=== PATIENT | male | born 1970 | race Caucasian/White ===

== ENCOUNTER → 2016-11-13 | Outpatient (CLI) | payer BC ==
[2016-11-13 12:23] LABS: BASO % 0.5 %; BASO ABS # 0.04 K/uL (0-0.2); COMPLETE YES; EOS % 1.7 %; HEMATOCRIT 51.9 % (42-52); IG% 0.6 %; LYMPH % 15.4 %; LYMPH ABS # 1.24 K/uL (1.2-3.4); MEAN CELL VOLUME 97.2 fL (80-100); MEAN CORPUSCULAR HEMOGLOBIN 33.7 pg (25-34); MEAN CORPUSCULAR HGB CONC 34.7 g/dl (32-36); MEAN PLATELET VOLUME 10.8 fL (7.4-10.4); NEUT % 71.8 %; PLATELET COUNT 189 K/uL (130-400); RED BLOOD COUNT 5.34 M/uL (4.7-6.1); WHITE BLOOD COUNT 8.04 K/uL (4.8-10.8)
[2016-11-13 12:56] LABS: ALT/SGPT 45 U/L (12-78); BLOOD UREA NITROGEN 13 mg/dl (7-18); BUN/CREATININE RATIO 14.2 (10-20); CALCIUM 9.4 mg/dl (8.5-10.1); CARBON DIOXIDE 27 mmol/L (21-32); CHLORIDE 104 mmol/L (98-107); CHOLESTEROL 266 mg/dl (0-200); CREATININE 0.93 mg/dl (0.60-1.40); GLUCOSE 108 mg/dl (70-99); SODIUM 137 mmol/L (136-145); TRIGLYCERIDES 328 mg/dl (0-150); VERY LOW DENSITY LIPOPROT CALC 66 mg/dl
[2016-11-13 13:06] LABS: ALB/GLOB RATIO 1.1 (0.9-2); ALKALINE PHOSPHATASE 103 U/L (45-117); AST/SGOT 28 U/L (15-37); CHOLESTEROL/HDL RATIO 3.9; HDL CHOLESTEROL 68 mg/dl; LDL CHOLESTEROL CALCULATED 132 mg/dl
== END | disposition home or self-care (01) ==
LOC: C.LABPVFM 09:54
PROVIDERS: ATTEND Family Medicine Adult Medicine
DX: I10 Essential (primary) hypertension (principal)

== ENCOUNTER 2017-02-12 22:38 | Emergency (ER) | payer BC ==
[~2017-02-12] VITALS: Ht 175.3 cm; Wt 84.0 kg
[~2017-02-12 22:38] MED LIST: AMOX250C3 PO
[2017-02-12 22:41] VITALS: TEMP 36.4; Ht 175.3 cm; Wt 84.0 kg
[2017-02-12] MEDS ORDERED: CEFAZOLIN IV 2,000 MG in DEXTROSE 5% 50ML 50 ML IV STA (22:53)
[2017-02-12] MEDS ORDERED: XYLOCAINE 1%/SOD BICARB 20 ML VIAL INFIL ONE (22:53)
[2017-02-12 23:13] LABS: BASO % 0.5 %; BASO ABS # 0.04 K/uL (0-0.2); EOS % 2.1 %; EOS ABS # 0.16 K/uL (0-0.5); HEMATOCRIT 49.1 % (42-52); HEMOGLOBIN 17.6 g/dL (14.0-18.0); IG# 0.03 K/uL (0.00-0.02); LYMPH % 31.1 %; LYMPH ABS # 2.33 K/uL (1.2-3.4); MEAN CELL VOLUME 99.2 fL (80-100); MEAN CORPUSCULAR HEMOGLOBIN 35.6 pg (25-34); MEAN CORPUSCULAR HGB CONC 35.8 g/dl (32-36); MEAN PLATELET VOLUME 10.1 fL (7.4-10.4); MONO % 10.9 %; MONO ABS # 0.82 K/uL (0.11-0.59); NEUT ABS # 4.11 K/uL (1.4-6.5); PLATELET COUNT 197 K/uL (130-400); RED CELL DISTRIBUTION WIDTH SD 50.3 fL (36.4-46.3); WHITE BLOOD COUNT 7.49 K/uL (4.8-10.8)
[2017-02-12 23:32] LABS: ALBUMIN 3.8 gm/dl (3.4-5.0); ALT/SGPT 39 U/L (12-78); AST/SGOT 22 U/L (15-37); BLOOD UREA NITROGEN 11 mg/dl (7-18); CALCIUM 8.9 mg/dl (8.5-10.1); CARBON DIOXIDE 24 mmol/L (21-32); CREATININE 0.91 mg/dl (0.60-1.40); GLUCOSE 96 mg/dl (70-99); POTASSIUM 3.5 mmol/L (3.5-5.1); SODIUM 139 mmol/L (136-145)
[2017-02-12 23:35] LABS: ALKALINE PHOSPHATASE 84 U/L (45-117); TOTAL PROTEIN 7.7 gm/dl (6.4-8.2)
[2017-02-13 00:25] VITALS: BP 156/103; PULSE 78; O2SAT 98
[2017-02-13] MEDS ORDERED: CEPH500C PO (00:25)
[2017-02-13] MEDS ORDERED: HYDR-5688 PO (00:25)
[2017-02-13] MEDS ORDERED: CEPHALEXIN 500MG HOME PACK 1 EA BTL PO ONE (00:30)
[2017-02-13] MEDS ORDERED: NORCO 5/325MG HOME PACK PO ONE (00:45)
--- NOTE | 2017-02-13 00:56 | EMERGENCY ROOM VISIT NOTE ---
History Report prepared by Kostas: Thalia Chun Under the Supervision of: Dr. Sandy Hua M.D. First contact with patient: 22:49 Chief Complaint: LACERATION/CUT (SUT/DERMABOND) Stated Complaint: CUT L HAND INDEX FINGER History of Present Illness The patient is a 46 year old male who presents to the Emergency Room with complaints of an episode of laceration to the left index finger which occurred [employer]. The patient was cutting dry wall in a barn on an old table saw. The conditions were not very clean. His left index finger got cut in the table saw. He feels the tip of his finger might have been amputated. He also has some pain in his left middle finger. He denies any other injury. His last tetanus shot was 2 months ago. He did not have an injury at that time. The patient has a history of hypertension. He smokes 1 pack a day. He drinks a bottle of wine on the weekends. He had 2 glasses of wine tonight. 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 Review of Systems See HPI for pertinent positives & negatives. A total of 10 systems reviewed and were otherwise negative. Past Medical & Surgical Medical Problems: (1) Hypertension Family History No pertinent family history stated. Social History Smoking Status: Current Every Day Smoker Alcohol Use: occasionally Marital Status: Housing Status: lives with family Occupation Status: employed Current/Historical Medications Scheduled Amoxicillin (Amoxil), Unknown Dose PO QID Cephalexin Monohydrate (Keflex), 500 MG PO QID Scheduled PRN Hydrocodone/Acetaminophen 5MG/325MG ([place] 5MG/325MG), 1 TABLET PO Q6 PRN for Pain Allergies Coded Allergies: No Known Allergies (Unverified , 02/12/17) Physical Exam Vital Signs Date Time Temp Pulse Resp B/P (MAP) Pulse Ox O2 Delivery O2 Flow Rate FiO2 02/13/17 00:25 78 20 156/103 98 Room Air 02/12/17 23:44 98 22 176/113 96 Room Air 02/12/17 22:41 36.4 132 22 210/117 94 Room Air Physical Exam Vital signs reviewed. Noted to be hypertensive. General: Well-appearing male, intoxicated, in no significant distress. HEENT: No scleral icterus, PERRLA, neck supple. Atraumatic. Cardiovascular: Regular rate and rhythm, no extra sounds. Pulmonary: Clear to auscultation bilaterally, normal work of breathing. Abdomen: Soft, nontender, nondistended, positive bowel sounds. Musculoskeletal: Left index finger is lacerated from the PIP through the distal aspect of the finger with the PIP joint exposed. Nail bed is avulsed and bleeding is controlled. Neurologic: Patient awake alert and oriented x 3 Skin: Warm, dry, no rash Medical Decision & Procedures ER Provider Diagnostic Interpretation: X-ray results as stated below per interpretation by me: Finger X-ray: Comminuted fracture distal to the PIP joint. Soft tissue disruption distal to the PIP of the left index finger. Laboratory Results 02/12/17 22:59 Red Blood Count 4.95, Mean Corpuscular Volume 99.2, Mean Corpuscular Hemoglobin 35.6, Mean Corpuscular Hemoglobin Concent 35.8, Mean Platelet Volume 10.1, Neutrophils (%) (Auto) 55.0, Lymphocytes (%) (Auto) 31.1, Monocytes (%) (Auto) 10.9, Eosinophils (%) (Auto) 2.1, Basophils (%) (Auto) 0.5, Neutrophils # (Auto ) 4.11, Lymphocytes # (Auto) 2.33, Monocytes # (Auto) 0.82, Eosinophils # (Auto ) 0.16, Basophils # (Auto) 0.04 02/12/17 22:59 Test 02/12/17 22:59 02/12/17 23:07 White Blood Count 7.49 K/uL (4.8-10.8) Red Blood Count 4.95 M/uL (4.7-6.1) Hemoglobin 17.6 g/dL (14.0-18.0) Hematocrit 49.1 % (42-52) Mean Corpuscular Volume 99.2 fL (80-100) Mean Corpuscular Hemoglobin 35.6 pg (25-34) Mean Corpuscular Hemoglobin Concent 35.8 g/dl (32-36) Platelet Count 197 K/uL (130-400) Mean Platelet Volume 10.1 fL (7.4-10.4) Neutrophils (%) (Auto) 55.0 % Lymphocytes (%) (Auto) 31.1 % Monocytes (%) (Auto) 10.9 % Eosinophils (%) (Auto) 2.1 % Basophils (%) (Auto) 0.5 % Neutrophils # (Auto) 4.11 K/uL (1.4-6.5) Lymphocytes # (Auto) 2.33 K/uL (1.2-3.4) Monocytes # (Auto) 0.82 K/uL (0.11-0.59) Eosinophils # (Auto) 0.16 K/uL (0-0.5) Basophils # (Auto) 0.04 K/uL (0-0.2) RDW Standard Deviation 50.3 fL (36.4-46.3) RDW Coefficient of Variation 14.0 % (11.5-14.5) Immature Granulocyte % (Auto) 0.4 % Immature Granulocyte # (Auto) 0.03 K/uL (0.00-0.02) Anion Gap 8.0 mmol/L (3-11) Est Creatinine Clear Calc Drug Dose 101.5 ml/min Estimated GFR () 116.7 Estimated GFR (Non- 100.7 BUN/Creatinine Ratio 12.1 (10-20) Calcium Level 8.9 mg/dl (8.5-10.1) Total Bilirubin 0.3 mg/dl (0.2-1) Direct Bilirubin < 0.1 mg/dl (0-0.2) Aspartate Amino Transf (AST/SGOT) 22 U/L (15-37) Alanine Aminotransferase (ALT/SGPT) 39 U/L (12-78) Alkaline Phosphatase 84 U/L (45-117) Total Protein 7.7 gm/dl (6.4-8.2) Albumin 3.8 gm/dl (3.4-5.0) Ethyl Alcohol mg/dL 114.0 mg/dl (0-3) Laboratory results per my review. Medications Administered Medications (Trade) Dose Ordered Sig/Brigette Route Start Time Stop Time Status Last Admin Dose Admin Cefazolin Sodium 2000 mg/Dextrose 60 ml @ 100 mls/hr NOW STAT IV 02/12/17 22:53 02/12/17 23:28 DC 02/12/17 23:43 100 MLS/HR Cephalexin Monohydrate (Keflex 500MG Home Pack) 1 homepack NOW ONCE PO 02/13/17 00:30 02/13/17 00:31 DC 02/13/17 00:41 1 HOMEPACK Acetaminophen/ Hydrocodone Bitart ([place] 5/325mg Home Pack) 1 homepack UD ONCE PO 02/13/17 00:45 02/13/17 00:46 DC 02/13/17 00:42 1 HOMEPACK Procedure Digital Block Indication: open fracture of left distal index finger Verbal consent obtained. Risks and benefits were explained with the usual customary discussion. A time out was taken. The skin was prepped with Betadine. Using sterile technique, 4 mL's of 1% lidocaine was injected into the base of the left index finger. No complications. The patient tolerated the procedure well. ED Course 2250: Past medical records reviewed. The patient was evaluated in room B6. A complete history and physical examination was performed. 2253: Cefazolin Sodium 2000 mg/Dextrose 60 ml @ 100 mls/hr IV. 2258: Digital block was performed according to the procedure note above. 2329: I discussed the patient's case with Dr. German, orthopedic surgery - [facility]. He will evaluate the patient for further management. 2340: Upon reevaluation, the patient is stable. I discussed laboratory and radiographic results with him. He verbalized agreement of the treatment plan. The patient will be evaluated for further management and care. 0021: The patient has been evaluated by Dr. German. He recommends the patient follow up with Dr. Cotton this week. He was discharged home. 0030: Keflex 500 mg 1 homepack PO. 0045: [place] 5/325 mg 1 homepack PO. Medical Decision Differential diagnosis: Etiologies such as fracture, dislocation, neurovascular compromise, compartment syndrome, soft tissue injury, as well as others were entertained. This patient was evaluated and appeared to be in no significant distress. Physical examination reveals significant trauma to the distal left index finger. A digital block was performed for the patient's comfort. Please see my procedure note above. X-rays were performed and reveal a comminuted distal fracture of the middle and distal phalanges. The laceration exposes the joint and multiple comminuted fractured pieces. Patient's tetanus status is up-to- date. He was given 2 g of IV Ancef. I did speak with Dr. German of orthopedic surgery has agreed to evaluate the patient in the emergency department for further management. The patient's wound was irrigated and closed by Dr. German. He has recommended Keflex for [address] German will arrange for the patient to be seen by Dr. Cotton of hand surgery this week. He will be discharged to the care of his and return to the ER for worsening of symptoms or any medical concerns. Medication Reconcilliation Current Medication List: was personally reviewed by me Blood Pressure Screening Patient's blood pressure: Elevated blood pressure Blood pressure disposition: Referred to PCP Consults Time Called: 2326 Consulting Physician: Dr. German, orthopedic surgery - [facility] Returned Call: [phone] I discussed the patient's case with him. He will evaluate the patient for further management. Impression Primary Impression: Open fracture of phalanx of left index finger Additional Impression: Alcohol intoxication Scribe Attestation The scribe's documentation has been prepared under my direction and personally reviewed by me in its entirety. I confirm that the note above accurately reflects all work, treatment, procedures, and medical decision making performed by me. Departure Information Dispostion Home / Self-Care Prescriptions Hydrocodone/Acetaminophen 5MG/325MG ([place] 5MG/325MG) Tab 1 TABLET PO Q6 Y for Pain, #15 TAB Prov: Sandy Hua M.D. 02/13/17 Cephalexin Monohydrate (Keflex) 500 Mg Cap 500 MG PO QID, #28 CAP Prov: Sandy Hua M.D. 02/13/17 Referrals Lio Hill M.D. (PCP) Toi Cotton MD Forms HOME CARE DOCUMENTATION FORM, IMPORTANT VISIT INFORMATION Patient Instructions My [facility] Additional Instructions Diagnosis: Open fracture of the left index finger Keep the dressing in place. Keflex 500 mg 4 times a day for 7 days. [place] one tablet every 6 hours as needed for severe pain. Do not drive or take Tylenol with this medication. Please contact your primary care physician regarding your blood pressure. You should be seen in the office this week for a blood pressure recheck. Return to the emergency department for worsening of symptoms or any medical concerns. Problem Qualifiers
--- NOTE | 2017-02-13 01:11 | ORTHOPEDIC CONSULTATION ---
DATE OF CONSULTATION: 02/13/2017 CHIEF COMPLAINT: Table saw injury to the left index finger. HISTORY OF PRESENT ILLNESS: Ulysses is a 46-year-old male who was doing some drywalling at his house. He was using table saw at the same time. The drywall got away from him and he sustained a complex laceration on the dorsal aspect of his left index finger. He came to the Emergency Room. Radiographs demonstrated comminuted fractures of the distal and middle phalanx. Orthopedics was consulted to evaluate and treat. PAST MEDICAL HISTORY: Significant for hypertension. MEDICATIONS: Include [place] as needed for pain. PAST SURGICAL HISTORY: Denies. ALLERGIES: None. FAMILY HISTORY: Noncontributory. SOCIAL HISTORY: He works in the [employer] department at [employer] and he likes to remain active. PHYSICAL EXAMINATION: LEFT HAND: There is a complex longitudinal laceration on the dorsal aspect of the left index finger that extends from the PIP joint down through the nail plate. The majority of the nail plate is missing. It is still intact underneath the eponychium. He does have some active flexion of his finger. He has very limited extension of the PIP or the DIP joints. He had already had a hematoma block before my exam. The wound is split open and there is some exposed bone fragments. IMAGING DATA: X-rays reviewed did show complex fracture of the middle and distal phalanx of the left index finger. IMPRESSION: Table saw injury, left index finger. PLAN: At bedside, I did an irrigation of the wound and a closure. This will likely need to be looked at closer in the operating room. I will see if we can save any of the extensor tendons to see if we can get him a functional finger. The bone will heal and the soft tissue should heal around the bone but we still need to determine if we can get a functional finger out of it. I discussed all of that to him and his at bedside. He was happy that I closed it up and did not amputate tonight and he understands that may require an amputation in the future. We will discharge him home on oral pain medications and Keflex. He can follow up with Dr. Cotton that a hand specialist at [facility].
--- NOTE | 2017-02-13 01:12 | OPERATIVE REPORT ---
DATE OF OPERATION: 02/12/2017 PROCEDURE NOTE PREOPERATIVE DIAGNOSIS: Complex table saw injury to left index finger. POSTOPERATIVE DIAGNOSIS: Same. PROCEDURE: Open irrigation and closure of the left index finger. SURGONE: Dr. Sebastian German. ASSISTANTS: None. ANESTHESIA: Digital block. INDICATIONS: Ulysses is a 46-year-old male who sustained a complex longitudinal laceration on the dorsal aspect of his left index finger by a table saw earlier this evening. X-rays showed complex fractures of the middle and distal phalanx. A Cheshire tourniquet was applied. The finger itself was then irrigated with a liter of normal saline solution. There were multiple loose bone fragments and the extensor tendon was not well visualized. Once the wound was sterilely irrigated, the skin was closed with 4-0 nylon sutures in an interrupted fashion. I was able to bring all skin edges together. There was a piece of the nail plate left underneath the eponychium and I decided to leave that intact. The finger was then dressed with Xeroform and gauze dressing. It was a bulky dressing and I did not feel a splint was necessary. He tolerated the procedure well. I attest to the content of the Intraoperative Record and any orders documented therein. Any exception s are noted below.
--- NOTE | 2017-02-13 06:50 | DIAGNOSTIC IMAGING REPORT ---
LEFT INDEX FINGER 3 VIEWS CLINICAL HISTORY: Left index finger pain status post trauma COMPARISON: None. DISCUSSION: There is extensively comminuted fracture involving the distal phalanx and middle phalanx. There is displaced intra-articular fracture arising from the dorsal base of the middle phalanx which projects dorsal to the distal head of the proximal phalanx. No dislocation is visualized. IMPRESSION: Extensively comminuted fractures of the mid and distal phalanges. Electronically signed by: Vijay Ragsdale M.D. 02/13/2017 6:49 AM Dictated Date/Time: 02/13/2017 6:47 AM
== END 2017-02-13 00:51 | disposition home or self-care (01) ==
LOC: C.EDB 22:40
DX: S62.601A Fracture of unspecified phalanx of left index finger, initial encounter for closed fracture (principal); W31.2XXA Contact with powered woodworking and forming machines, initial encounter; F10.929 Alcohol use, unspecified with intoxication, unspecified; I10 Essential (primary) hypertension; F17.200 Nicotine dependence, unspecified, uncomplicated